=== PATIENT | male | born 1950 | race Caucasian/White ===

== ENCOUNTER 2024-04-17 05:35 | Day surgery (SDC) | payer MEDICARE, OTHER ==
[2024-04-08 14:41] VITALS: BP 147/77
[~2024-04-17] VITALS: Ht 175.3 cm; Wt 100.0 kg
[~2024-04-17 05:35] MED LIST: COLCRYS0.6 MG PO; LACTATED RINGER'S 1,000 ML IV SCH; LIPITOR20 MG PO; LOSARTAN POTASS50 MG PO; MULTI VITAMIN1 EACH PO
[2024-04-17 06:08] VITALS: BP 149/76
[2024-04-17] MEDS ORDERED: LIDOCAINE HCL 2% 20 MG/ML VIAL INJ ONE (06:15)
[2024-04-17] MEDS ORDERED: Ropivacaine HCl 0.5% 30 ML VIAL ONE (06:15)
[2024-04-17] MEDS ORDERED: DEXAMETHASONE SOD PHOS 4 MG/ML VIAL ONE (06:15)
[2024-04-17] MEDS ORDERED: CEPHALEXIN500 MG PO (06:20)
[2024-04-17] MEDS ORDERED: fentaNYL citrate 100 MCG/2 ML VIAL ONE (06:52)
[2024-04-17] MEDS ORDERED: LIDOCAINE HCL 2% 5 ML SDV ONE (06:52)
[2024-04-17] MEDS ORDERED: propofoL 200 MG/20 ML VIAL ONE ×4 (06:52→08:41)
[2024-04-17] MEDS ORDERED: ACETAMINOPHEN 1,000 MG/100 ML VIAL ONE (06:52)
[2024-04-17] MEDS ORDERED: ondansetron HCL 4 MG/2 ML VIAL ONE (06:52)
[2024-04-17] MEDS ORDERED: KETOROLAC TROMETHAMINE 30 MG/ML VIAL ONE (06:52)
[2024-04-17] MEDS ORDERED: CEFAZOLIN SODIUM 1 GM/10 ML SYR IV SCH (07:00)
[2024-04-17] MEDS ORDERED: LIDOCAINE HCL 1% 5 ML SDV INJ ONE (07:00)
[2024-04-17] MEDS ORDERED: IBLOOD GLUCOSE TEST STRIP 1 EA TEST VI PRN ×2 (07:00→08:30)
--- NOTE | 2024-04-17 07:06 | NUR ---
PT NOT AVAILABLE FOR VISIT. PROVIDED PRAYER.
[2024-04-17] MEDS ORDERED: droPERidol 5 MG/2 ML VIAL IV PRN (08:30)
[2024-04-17] MEDS ORDERED: HYDROmorphone HCL 1 MG/ML SYR IV PRN (08:30)
[2024-04-17] MEDS ORDERED: ondansetron HCL 4 MG/2 ML VIAL IV PRN (08:30)
[2024-04-17] MEDS ORDERED: NALOXONE HCL 0.4 MG SYR IV PRN (08:30)
[2024-04-17] MEDS ORDERED: PROCHLORPERAZINE EDISYLATE 10 MG/2 ML VIAL IV PRN (08:30)
[2024-04-17] MEDS ORDERED: fentaNYL citrate 50 MCG/ML SDV IV PRN (08:30)
[2024-04-17 09:45] VITALS: BP 132/71
--- NOTE | 2024-04-17 10:51 | NUR ---
04/17/24 1051 Nan Weiss Nia 0910- PT PRESENTS TO PACU, SEMI SANDRA POSITION. BREATHING EVEN AND NON LABORED, LR INFUSING TO RH IV. ABD SOFT, NON DISTENDED. PT DROWSY BUT AWAKE AND ANSWERS QUESTIONS. DENIES PAIN AND NAUSEA. ABD SOFT, NON DISTENDED. DRESSING IN PLACE TO RIGHT FOOT, CDI, ELEVATED ON PILLOW, CMS INTACT. ALL MONITORS IN PLACE. 0920- PT REQUESTING WATER, HEAD OF BED ELEVATED. BOTH DENTURES PLACED BACK IN MOUTH, PT GIVEN ICE WATER TOLERATING WELL. 0925- XRAY COMPLETED. 28- DR RUDOLPH AT BEDSIDE DISCUSSING CASE WITH PT. PT VERBALIZES UNDERSTANDING. 0935- PT HAS NO COMPLAINTS, CONTINUES TO SIP ON WATER. 0947- PT UP TO SIDE OF BED, DENIES NAUSEA AND DIZZINESS. PT TO GET DRESSED. 0955- PT DRESSED AND READY TO GO. SALINE LOCK REMOVED, TIP INTACT, DRESSING APPLIED. PT ALERT AND ORIENTED. DENIES PAIN AND NAUSEA. VERY SMALL AMOUNT OF BLOOD NOTED JUST BELOW THE GREAT TOE. ICE PACK SENT WITH PT, INSTRUCTED TO ELEVATED FOOT ON THE DRIVE HOME. VERBALIZED UNDERSTANDING OF INSTRUCTIONS. INSTRUCTED TO EAT AND TAKE ALREADY PRESCRIBED PAIN MEDICATION BEFORE NUMBNESS WEARS OFF. 1000- PT TAKEN BY WHEELCHAIR, TRANSFERRED WITH STEADY GAIT. TAKEN OUT TO CAR WITH ALL BELONGINGS, NO SIGNS OF DISTRESS. D/C INFORMATION GIVEN TO .
--- NOTE | 2024-04-21 15:56 | OR ---
[facility] [address], [place] [address] Signed DATE OF OPERATION: 04/17/2024 SURGEON: Jose Germain DPM PREOPERATIVE DIAGNOSIS: Hallux rigidus, right foot. POSTOPERATIVE DIAGNOSIS: Hallux rigidus, right foot. LEATHER CASE FINISHER SURGEON: Rene Chou DPM. ANESTHESIA: IV general with local block right foot. GUEST SERVICES ATTENDANT: Michelet Gifford. SPECIMEN TO PATHOLOGY: None. PROCEDURE: Hallux rigidus correction right foot with joint implant, right 1st MTPJ. DESCRIPTION OF PROCEDURE: The patient was brought to the operating room and placed on the table in the supine position. Anesthesia Department administered IV sedation after which a local block was given to the right foot using a total of 10 mL 1:1 mixture of 2% lidocaine plain and 0.5% ropivacaine plain. The right leg and foot was then prepped and draped in the usual sterile manner and an Esmarch was used for hemostasis. Attention was initially directed to the dorsal/medial right 1st MTPJ where a linear longitudinal incision was made about 1 cm medial to the extensor hallucis longus tendon, 7 cm in length centered over the joint. The incision was initially full-thickness through the dermis then deepened through subcutaneous tissue using careful dissection and cautery as necessary for hemostasis. Once at the level of deep fascia and joint capsule. The incision was deepened to bone reflecting soft tissues medially and laterally to expose the dorsal and medial aspects of the head of the 1st metatarsal as well as base of the proximal phalanx. Upon making Electronically Signed By: JOSE GERMAIN DPM 04/21/24 1556 PATIENT NAME: TASIA WINTER OPERATIVE REPORT DATE OF : 54 REPORT #: [id number] PHYSICIAN: JOSE GERMAIN DPM PCP: GERRI OSORIO PA-C REPORT IS CONFIDENTIAL AND NOT TO BE RELEASED WITHOUT AUTHORIZATION [facility] [address], [place] [address] Signed the incision, a very large amount of arthritic bony buildup was noted both to the metatarsal head as well as base of the proximal phalanx. A white crystaline material was also noted consistent with gout crystals. Once the bone was exposed, power instrumentation was used to resect some of this excess bony hypertrophy. Then, an osteotomy was made resecting the cartilage and a small amount of bone at the 1st metatarsal head as well as at the base of the proximal phalanx. The osteotomy sites were modified slightly to provide angular correction for correct positioning of the implant. The implant guidewire and reamer were then used to create the space for the implant within the bone. Then the surgical site was irrigated and prepared for placement of the implant. At this time, the trial implant was utilized and position to the hallux was noted to be elevated upon inspection. The flexor tendon at the surgical site at the base of the proximal phalanx was noted to be cut. It appears that this occurred with the bone saw resection of the base of the proximal phalanx. Therefore, at this time, a small hole was created with use of a k-wire through the plantar/proximal aspect of the proximal phalanx. This small hole was exiting out the plantar aspect of the phalanx and #1 Ethibond suture was used to suture the tendon to the base of the proximal phalanx, through this hole. At this point, this appeared to restore normal tension to the plantar aspect of the toe and the grommets for the implant then placed and the implant itself placed producing good position and good alignment to the toe. Deep soft tissues then closed using 3-0 Vicryl, subcutaneous tissue closed using 4-0 Vicryl and skin closed with skin jose. Dressings then applied consisting of Adaptic, Betadine-soaked gauze, dry gauze, Flexicon, and Coban for mild compression as well as splinting the position to the toe. INTRAOPERATIVE COMPLICATIONS: Tendon repair as indicated. ESTIMATED BLOOD LOSS: Less than 5 mL. Jose Germain DPM DFB/KELLYL Electronically Signed By: JOSE GERMAIN DPM 04/21/24 1556 PATIENT NAME: TASIA WINTER OPERATIVE REPORT DATE OF : 54 REPORT #: [id number] PHYSICIAN: JOSE GERMAIN DPM PCP: GERRI OSORIO PA-C REPORT IS CONFIDENTIAL AND NOT TO BE RELEASED WITHOUT AUTHORIZATION [address] [place] [address] Signed /[id number] Copies: ~ Electronically Signed By: JOSE GERMAIN DPM 04/21/24 1556 PATIENT NAME: TASIA WINTER OPERATIVE REPORT DATE OF : 54 REPORT #: [id number] PHYSICIAN: JOSE GERMAIN DPM PCP: GERRI OSORIO PA-C REPORT IS CONFIDENTIAL AND NOT TO BE RELEASED WITHOUT AUTHORIZATION
== END 2024-04-17 10:00 | disposition home or self-care (01) ==
LOC: DS 05:35
PROVIDERS: ATTEND Podiatrist Foot Surgery
PROC: 0SRM0JZ Replacement of Right Metatarsal-Phalangeal Joint with Synthetic Substitute, Open Approach (ICD-10-PCS; principal; 2024-04-17 07:00)
DX: M20.21 Hallux rigidus, right foot (principal); I10 Essential (primary) hypertension; Z79.899 Other long term (current) drug therapy
CPT/HCPCS: 01480; 73620; 73630; C1713; J0131; J0690; J1100; J1885; J2003; J2405; J2704; J2795; J3010; J7121